=== PATIENT | female | born 1950 | race Caucasian/White ===

== ENCOUNTER 2018-05-13 00:58 | Emergency (ER) | payer MEDICARE, OTHER ==
[~2018-05-13] VITALS: Ht 167.6 cm; Wt 57.0 kg
[~2018-05-13 00:58] MED LIST: BREX0.25 PO; CLON-527 PO; DESV100T4 PO; GARL600T2 PO; MUPI1OIN8 BOTHNARES; OREG1500 PO; RES15C PO; SILV50CR31 TP; SULF1TAB48 PO; [UNRECOGNIZED DRUG - OTHER] PO
[2018-05-13 01:02] VITALS: BP 185/91
[2018-05-13] MEDS ORDERED: ondansetron 4mg rapidly disintigrating tab PO ONE (01:40)
[2018-05-13] MEDS ORDERED: acetaminophen 325mg tablet PO ONE (01:40)
[2018-05-13] MEDS ORDERED: morphine 4 MG/ML inj SYRINge IM ONE (01:40)
[2018-05-13] MEDS ORDERED: HYDROcodone/acetaminophen 5mg/325mg tablet PO ONE (01:40)
[2018-05-13] MEDS ORDERED: HYDR-3965 PO (01:43)
[2018-05-13] MEDS ORDERED: ONDA8TAB9 PO (01:43)
== END 2018-05-13 02:19 | disposition home or self-care (01) ==
LOC: ER 00:59
DX: S42.291A Other displaced fracture of upper end of right humerus, initial encounter for closed fracture (principal); J45.909 Unspecified asthma, uncomplicated; Z98.890 Other specified postprocedural states; Z79.899 Other long term (current) drug therapy; W18.39XA Other fall on same level, initial encounter; Y93.89 Activity, other specified; Y92.89 Other specified places as the place of occurrence of the external cause; Y99.8 Other external cause status
CPT/HCPCS: 73030; 96372; 99284; J2270

== ENCOUNTER 2018-05-24 14:08 | Outpatient (CLI) | payer MEDICARE ==
[2018-05-24 14:05] VITALS: BP 148/71
[~2018-05-24 14:08] MED LIST changes: +HYDR-3965 PO; +ONDA8TAB9 PO
== END 2018-05-24 15:01 | disposition home or self-care (01) ==
LOC: ORTHO 14:08
PROVIDERS: ATTEND Nurse Practitioner Family
DX: S42.291A Other displaced fracture of upper end of right humerus, initial encounter for closed fracture (principal); I10 Essential (primary) hypertension; F17.210 Nicotine dependence, cigarettes, uncomplicated; E03.9 Hypothyroidism, unspecified; J45.909 Unspecified asthma, uncomplicated; F32.9 Major depressive disorder, single episode, unspecified; X58.XXXA Exposure to other specified factors, initial encounter; Y93.89 Activity, other specified; Y92.89 Other specified places as the place of occurrence of the external cause; Y99.8 Other external cause status
CPT/HCPCS: 73030; 99215

== ENCOUNTER 2018-06-15 14:21 | Outpatient (CLI) | payer MEDICARE ==
[2018-06-15 14:16] VITALS: BP 151/87
[~2018-06-15 14:21] MED LIST changes: -HYDR-3965 PO
== END 2018-06-15 15:01 | disposition home or self-care (01) ==
LOC: ORTHO 14:21
PROVIDERS: ATTEND Nurse Practitioner Family
DX: S42.251D Displaced fracture of greater tuberosity of right humerus, subsequent encounter for fracture with routine healing (principal); I10 Essential (primary) hypertension; J45.909 Unspecified asthma, uncomplicated; F41.8 Other specified anxiety disorders; F17.210 Nicotine dependence, cigarettes, uncomplicated; Z79.899 Other long term (current) drug therapy; W22.8XXD Striking against or struck by other objects, subsequent encounter
CPT/HCPCS: 73030; 99213

== ENCOUNTER 2018-06-19 11:46 | Emergency (ER) | payer MEDICARE ==
[~2018-06-19] VITALS: Ht 168.9 cm; Wt 72.0 kg
[2018-06-19] MEDS ORDERED: ondansetron/PF 4mg/2ml inj IV ONE (12:05)
[2018-06-19] MEDS ORDERED: morphine 4 MG/ML inj SYRINge IV ONE (12:05)
[2018-06-19 12:53] LABS: BASOPHILS % (AUTO) 0.4 % (0-1); EOSINOPHILS % (AUTO) 0.1 % (0-6); HEMATOCRIT 39.8 % (35.0-45.0); HEMOGLOBIN 13.2 g/dl (12.0-16.0); LYMPHOCYTES # (AUTO) 0.9 X10'3 (1.1-4.8); LYMPHOCYTES % (AUTO) 8.9 % (21-51); MEAN CORPUSCULAR HEMOGLOBIN 31.6 PG (27.0-31.0); MEAN CORPUSCULAR HGB CONC 33.1 % (33.0-36.5); MEAN CORPUSCULAR VOLUME 95.5 FL (78-98); MEAN PLATELET VOLUME 6.6 FL (7.4-10.4); MONOCYTES # (AUTO) 1.2 X10'3 (0-0.9); MONOCYTES % (AUTO) 11.6 % (2-12); NEUTROPHILS # (AUTO) 8.3 X10'3 (1.8-7.7); PLATELET COUNT 409 X10'3 (140-440); RED BLOOD COUNT 4.16 X10'6 (4.20-5.60); RED CELL DISTRIBUTION WIDTH 12.8 % (11.5-14.5); WHITE BLOOD COUNT 10.4 X10'3 (4.5-11.0)
[2018-06-19 13:06] LABS: ALANINE AMINOTRANSFERASE 39 U/L (12-78); ALBUMIN 3.9 G/DL (3.4-5.0); ALBUMIN/GLOBULIN RATIO 1.1 (1.1-1.5); ALKALINE PHOSPHATASE 104 IU/L (46-116); ANION GAP 14 (8-16); ASPARTATE AMINO TRANSFERASE 27 U/L (10-37); BILIRUBIN,TOTAL 0.2 MG/DL (0.1-1.0); BLOOD UREA NITROGEN 20 MG/DL (7-18); BUN/CREATININE RATIO 9.9 (6.6-38.0); CALCIUM 8.8 MG/DL (8.5-10.1); CHLORIDE 104 MMOL/L (99-107); CREATININE 2.02 MG/DL (0.40-0.90); GLUCOSE 123 MG/DL (70-104); LIPASE 152 U/L (73-393); POTASSIUM 4.1 MMOL/L (3.5-5.1); SODIUM 145 MMOL/L (135-145); TOTAL CARBON DIOXIDE 27.5 MMOL/L (24-32); TOTAL PROTEIN 7.3 G/DL (6.4-8.2); eGFR 25 ML/MIN
[2018-06-19] MEDS ORDERED: normal saline 1000ML IV soln IVB ONE (13:30)
[2018-06-19 14:32] LABS: MAGNESIUM 2.4 MG/DL (1.5-2.4)
[2018-06-19 14:48] LABS: CLARITY,URINE SLIGHTLY CLOUDY (Clear); COLOR,URINE YELLOW (Yellow); GLUCOSE, URINE NEGATIVE (Neg); KETONES,URINE NEGATIVE (Neg); LEUKOCYTE ESTERASE ,URINE NEGATIVE (Neg); NITRITES, URINE NEGATIVE (Neg); OCCULT BLOOD,URINE MODERATE (Neg); PH,URINE 5.5 (4.8-8.0); PROTEIN,URINE 30 mg/dl (Neg); UROBILINOGEN,URINE 0.2 E.U/dL (0.2-1.0)
[2018-06-19 14:53] LABS: UA COLLECTION TYPE CLN CATCH MIDSTREAM
[2018-06-19 14:54] LABS: BACTERIA,URINE 1+ /HPF (Neg); RBC,URINE 0-2 /HPF (0-2); WBC,URINE 0-4 /HPF (0-4)
[2018-06-19 14:55] LABS: CAL OXALATE CRYSTALS FEW /HPF (NEGATIVE); MUCUS STRANDS MODERATE /LPF (Neg); SQUAMOUS EPITHELIAL CELL,UR MANY /LPF (FEW); YEAST FEW /HPF (NEGATIVE)
[2018-06-19 15:01] LABS: URINE AMPHETAMINE SCREEN POSITIVE (Neg); URINE BARBITUATE SCREEN NEGATIVE (Neg); URINE BENZODIAZEPINES SCREEN NEGATIVE (Neg); URINE CANNABINOID SCREEN NEGATIVE (Neg); URINE COCAINE SCREEN NEGATIVE (Neg); URINE METHADONE SCREEN NEGATIVE (Neg); URINE OPIATE SCREEN POSITIVE (Neg); URINE PHENCYCLIDINE SCREEN NEGATIVE (Neg)
[2018-06-19 15:05] LABS: ALBUMIN 4.1 G/DL (3.4-5.0); ANION GAP 12 (8-16); BLOOD UREA NITROGEN 20 MG/DL (7-18); BUN/CREATININE RATIO 11.6 (6.6-38.0); CALCIUM 9.2 MG/DL (8.5-10.1); CHLORIDE 104 MMOL/L (99-107); CREATININE 1.72 MG/DL (0.40-0.90); GLUCOSE 114 MG/DL (70-104); POTASSIUM 4.3 MMOL/L (3.5-5.1); SODIUM 143 MMOL/L (135-145); TOTAL CARBON DIOXIDE 27.2 MMOL/L (24-32); eGFR 30 ML/MIN
[2018-06-19 16:26] VITALS: BP 156/89
== END 2018-06-19 16:31 | disposition home or self-care (01) ==
LOC: ER 11:47
DX: N17.9 Acute kidney failure, unspecified (principal); E86.1 Hypovolemia; R11.10 Vomiting, unspecified; F15.10 Other stimulant abuse, uncomplicated; I10 Essential (primary) hypertension; E03.9 Hypothyroidism, unspecified; Z98.890 Other specified postprocedural states; Z86.718 Personal history of other venous thrombosis and embolism; Z79.899 Other long term (current) drug therapy
CPT/HCPCS: 36415; 76775; 80048; 80053; 80305; 81001; 83605; 83690; 83735; 84145; 85025; 87040; 87077; 87186; 96361; 96374; 96375; 99284; J2270; J2405; J7030

== ENCOUNTER 2018-07-12 14:47 | Outpatient (CLI) | payer MEDICARE ==
[2018-07-12 14:47] VITALS: BP 150/79
== END 2018-07-12 15:12 | disposition home or self-care (01) ==
LOC: ORTHO 14:47
PROVIDERS: ATTEND Nurse Practitioner Family
DX: S42.211D Unspecified displaced fracture of surgical neck of right humerus, subsequent encounter for fracture with routine healing (principal); J45.909 Unspecified asthma, uncomplicated; F32.9 Major depressive disorder, single episode, unspecified; F17.200 Nicotine dependence, unspecified, uncomplicated; X58.XXXD Exposure to other specified factors, subsequent encounter
CPT/HCPCS: 73030; 99213

== ENCOUNTER 2018-09-14 01:24 | Emergency (ER) | payer MEDICARE ==
[~2018-09-14] VITALS: Ht 167.6 cm; Wt 74.0 kg
[2018-09-14 02:46] LABS: BASOPHILS # (AUTO) 0.1 X10'3 (0-0.2); BASOPHILS % (AUTO) 0.9 % (0-1); EOSINOPHILS % (AUTO) 0.4 % (0-6); HEMATOCRIT 42.5 % (35.0-45.0); HEMOGLOBIN 14.2 g/dl (12.0-16.0); LYMPHOCYTES # (AUTO) 1.3 X10'3 (1.1-4.8); MEAN CORPUSCULAR HGB CONC 33.4 g/dL (33.0-36.5); MEAN CORPUSCULAR VOLUME 92.9 FL (78-98); MEAN PLATELET VOLUME 7.1 FL (7.4-10.4); MONOCYTES # (AUTO) 0.8 X10'3 (0-0.9); MONOCYTES % (AUTO) 9.2 % (2-12); NEUTROPHILS # (AUTO) 6.1 X10'3 (1.8-7.7); NEUTROPHILS % (AUTO) 73.5 % (42-75); PLATELET COUNT 385 X10'3 (140-440); RED BLOOD COUNT 4.58 X10'6 (4.20-5.60); RED CELL DISTRIBUTION WIDTH 12.9 % (11.5-14.5); WHITE BLOOD COUNT 8.3 X10'3 (4.5-11.0)
[2018-09-14 02:52] LABS: ALANINE AMINOTRANSFERASE 59 U/L (12-78); ALBUMIN 3.8 G/DL (3.4-5.0); ALBUMIN/GLOBULIN RATIO 1.1 (1.1-1.5); ALKALINE PHOSPHATASE 100 IU/L (46-116); ANION GAP 9 (8-16); ASPARTATE AMINO TRANSFERASE 50 U/L (10-37); BILIRUBIN,TOTAL 0.1 MG/DL (0.1-1.0); BLOOD UREA NITROGEN 19 MG/DL (7-18); BUN/CREATININE RATIO 15.6 (6.6-38.0); CALCIUM 9.3 MG/DL (8.5-10.1); CHLORIDE 102 MMOL/L (99-107); CREATININE 1.22 MG/DL (0.40-0.90); GLUCOSE 112 MG/DL (70-104); POTASSIUM 4.1 MMOL/L (3.5-5.1); SODIUM 139 MMOL/L (135-145); TOTAL CARBON DIOXIDE 27.6 MMOL/L (24-32); TOTAL PROTEIN 7.4 G/DL (6.4-8.2); eGFR 44 ML/MIN
[2018-09-14 02:56] LABS: MAGNESIUM 2.1 MG/DL (1.5-2.4)
[2018-09-14] MEDS ORDERED: ondansetron/PF 4mg/2ml inj IV ONE (03:10)
[2018-09-14 06:16] VITALS: BP 109/57
== END 2018-09-14 06:45 | disposition home or self-care (01) ==
LOC: ER 01:25
DX: T42.4X1A Poisoning by benzodiazepines, accidental (unintentional), initial encounter (principal); T39.1X1A Poisoning by 4-Aminophenol derivatives, accidental (unintentional), initial encounter; R55 Syncope and collapse; I10 Essential (primary) hypertension; E03.9 Hypothyroidism, unspecified; Z86.718 Personal history of other venous thrombosis and embolism; Y92.89 Other specified places as the place of occurrence of the external cause
CPT/HCPCS: 36415; 70450; 71045; 80053; 83735; 84484; 85025; 93005; 96374; 99284; J2405

== ENCOUNTER 2019-02-05 20:53 | Emergency (ER) | payer MEDICARE ==
[~2019-02-05] VITALS: Ht 165.1 cm; Wt 67.3 kg
[2019-02-05 21:08] VITALS: BP 145/100
[2019-02-05] MEDS ORDERED: PERM60CR19 TP (21:30)
== END 2019-02-05 21:42 | disposition home or self-care (01) ==
LOC: ER 20:53
DX: S40.862A Insect bite (nonvenomous) of left upper arm, initial encounter (principal); S40.861A Insect bite (nonvenomous) of right upper arm, initial encounter; I10 Essential (primary) hypertension; F32.9 Major depressive disorder, single episode, unspecified; E03.9 Hypothyroidism, unspecified; Z79.899 Other long term (current) drug therapy; Z86.718 Personal history of other venous thrombosis and embolism; Z86.14 Personal history of Methicillin resistant Staphylococcus aureus infection; Z98.890 Other specified postprocedural states; W57.XXXA Bitten or stung by nonvenomous insect and other nonvenomous arthropods, initial encounter; Y93.89 Activity, other specified; Y92.89 Other specified places as the place of occurrence of the external cause; Y99.8 Other external cause status
CPT/HCPCS: 99282

== ENCOUNTER 2021-02-25 06:59 | Emergency (ER) | payer MEDICARE ==
[~2021-02-25] VITALS: Ht 165.1 cm; Wt 65.9 kg
[~2021-02-25 06:59] MED LIST changes: +HYDR28CR14 TOP
--- NOTE | 2021-02-25 11:12 | NUR ---
attempt ekg, patient wanted me to come back at later time per "being cold". MD mike made aware.
[2021-02-25 11:56] LABS: BASOPHILS # (AUTO) 0.1 X10'3 (0-0.2); BASOPHILS % (AUTO) 1.1 % (0-1); EOSINOPHILS # (AUTO) 0.1 X10'3 (0-0.9); EOSINOPHILS % (AUTO) 1.7 % (0-6); HEMATOCRIT 38.3 % (35.0-45.0); HEMOGLOBIN 13.4 g/dl (12.0-16.0); LYMPHOCYTES # (AUTO) 1.4 X10'3 (1.1-4.8); LYMPHOCYTES % (AUTO) 26.2 % (21-51); MEAN CORPUSCULAR HEMOGLOBIN 32.9 PG (27.0-31.0); MEAN PLATELET VOLUME 7.4 FL (7.4-10.4); MONOCYTES # (AUTO) 0.7 X10'3 (0-0.9); NEUTROPHILS # (AUTO) 3.1 X10'3 (1.8-7.7); PLATELET COUNT 354 X10'3 (140-440); RED BLOOD COUNT 4.08 X10'6 (4.20-5.60); RED CELL DISTRIBUTION WIDTH 12.7 % (11.5-14.5); WHITE BLOOD COUNT 5.4 X10'3 (4.5-11.0)
[2021-02-25 12:01] LABS: ALANINE AMINOTRANSFERASE 35 U/L (12-78); ALBUMIN 3.7 G/DL (3.4-5.0); ALKALINE PHOSPHATASE 85 IU/L (46-116); ANION GAP 9 (8-16); ASPARTATE AMINO TRANSFERASE 26 U/L (10-37); BILIRUBIN,TOTAL 0.2 MG/DL (0.1-1.0); BLOOD UREA NITROGEN 18 MG/DL (7-18); BUN/CREATININE RATIO 17.8 (6.6-38.0); CALCIUM 10.3 MG/DL (8.5-10.1); CHLORIDE 107 MMOL/L (99-107); CREATININE 1.01 MG/DL (0.40-0.90); GLUCOSE 95 MG/DL (70-104); POTASSIUM 3.8 MMOL/L (3.5-5.1); SODIUM 145 MMOL/L (135-145); TOTAL CARBON DIOXIDE 28.8 MMOL/L (24-32); TOTAL PROTEIN 7.4 G/DL (6.4-8.2); eGFR 54 ML/MIN
[2021-02-25 12:08] LABS: ETHANOL < 0.010 GM/DL (0.0-0.010); MAGNESIUM 2.3 MG/DL (1.5-2.4); TROPONIN I < 0.04 NG/ML (0.0-0.05)
[2021-02-25] MEDS ORDERED: FURO-150 PO (12:44)
--- NOTE | 2021-02-25 12:51 | NUR ---
Pt given and understands d/c instructions. Ambulatory with a slow steady gait. C/O leg pain when walking or when legs are touched.
[2021-02-25 12:52] VITALS: BP 162/87
== END 2021-02-25 12:54 | disposition home or self-care (01) ==
LOC: ER 06:59
DX: R60.0 Localized edema (principal); I10 Essential (primary) hypertension; E06.9 Thyroiditis, unspecified; F32.9 Major depressive disorder, single episode, unspecified; F15.10 Other stimulant abuse, uncomplicated
CPT/HCPCS: 36415; 71045; 80053; 80320; 83735; 83880; 84484; 85025; 93005; 99285

== ENCOUNTER 2021-02-27 10:27 | Emergency (ER) | payer MEDICARE ==
[~2021-02-27] VITALS: Ht 165.1 cm; Wt 65.9 kg
[~2021-02-27 10:27] MED LIST changes: +FURO-150 PO
[2021-02-27 16:27] VITALS: BP 150/67
== END 2021-02-27 16:54 | disposition home or self-care (01) ==
LOC: ER 10:29
DX: F22 Delusional disorders (principal); F43.10 Post-traumatic stress disorder, unspecified; I10 Essential (primary) hypertension; E03.9 Hypothyroidism, unspecified; Z86.14 Personal history of Methicillin resistant Staphylococcus aureus infection; F15.90 Other stimulant use, unspecified, uncomplicated; Z98.891 History of uterine scar from previous surgery; Z98.890 Other specified postprocedural states; Z87.81 Personal history of (healed) traumatic fracture; Z79.899 Other long term (current) drug therapy; R60.9 Edema, unspecified
CPT/HCPCS: 99281

== ENCOUNTER 2021-03-10 08:38 | Emergency (ER) | payer MEDICARE ==
[~2021-03-10] VITALS: Ht 167.6 cm; Wt 63.6 kg
[2021-03-10 08:52] VITALS: BP 153/89
[2021-03-10] MEDS ORDERED: LORazepam 1 MG tablet PO ONE (09:30)
[2021-03-10] MEDS ORDERED: DESV100T16 PO (09:53)
[2021-03-10] MEDS ORDERED: ZIPR40CA14 (09:53)
[2021-03-10] MEDS ORDERED: CLON-568 PO (09:53)
[2021-03-10] MEDS ORDERED: FURO20TA4 PO (09:54)
[2021-03-10 10:08] LABS: BASOPHILS # (AUTO) 0.1 X10'3 (0-0.2); BASOPHILS % (AUTO) 1.2 % (0-1); EOSINOPHILS # (AUTO) 0.1 X10'3 (0-0.9); EOSINOPHILS % (AUTO) 0.6 % (0-6); HEMATOCRIT 40.8 % (35.0-45.0); HEMOGLOBIN 14.2 g/dl (12.0-16.0); LYMPHOCYTES # (AUTO) 2.1 X10'3 (1.1-4.8); LYMPHOCYTES % (AUTO) 22.3 % (21-51); MEAN CORPUSCULAR HEMOGLOBIN 32.3 PG (27.0-31.0); MEAN CORPUSCULAR HGB CONC 34.7 g/dL (33.0-36.5); MEAN CORPUSCULAR VOLUME 93.1 FL (78-98); MEAN PLATELET VOLUME 7.5 FL (7.4-10.4); MONOCYTES # (AUTO) 1.1 X10'3 (0-0.9); MONOCYTES % (AUTO) 11.2 % (2-12); NEUTROPHILS # (AUTO) 6.2 X10'3 (1.8-7.7); NEUTROPHILS % (AUTO) 64.7 % (42-75); PLATELET COUNT 389 X10'3 (140-440); RED BLOOD COUNT 4.39 X10'6 (4.20-5.60); RED CELL DISTRIBUTION WIDTH 12.6 % (11.5-14.5); WHITE BLOOD COUNT 9.6 X10'3 (4.5-11.0)
[2021-03-10 10:21] LABS: ALANINE AMINOTRANSFERASE 33 U/L (12-78); ALBUMIN 4.1 G/DL (3.4-5.0); ALBUMIN/GLOBULIN RATIO 1.1 (1.1-1.5); ALKALINE PHOSPHATASE 97 IU/L (46-116); ANION GAP 14 (8-16); ASPARTATE AMINO TRANSFERASE 30 U/L (10-37); BILIRUBIN,TOTAL 0.4 MG/DL (0.1-1.0); BLOOD UREA NITROGEN 26 MG/DL (7-18); BUN/CREATININE RATIO 19.7 (6.6-38.0); CALCIUM 9.2 MG/DL (8.5-10.1); CHLORIDE 100 MMOL/L (99-107); CREATININE 1.32 MG/DL (0.40-0.90); GLUCOSE 102 MG/DL (70-104); SODIUM 138 MMOL/L (135-145); TOTAL CARBON DIOXIDE 24.3 MMOL/L (24-32); eGFR 40 ML/MIN
[2021-03-10 10:31] LABS: ETHANOL < 0.010 GM/DL (0.0-0.010)
[2021-03-10 10:59] LABS: CLARITY,URINE TURBID (Clear); COLOR,URINE YELLOW (Yellow); UA COLLECTION TYPE VOIDED
[2021-03-10 11:00] LABS: GLUCOSE, URINE NEGATIVE (Neg); KETONES,URINE TRACE mg/dl (Neg); PH,URINE 6.5 (4.8-8.0); PROTEIN,URINE TRACE mg/dl (Neg); URINE AMPHETAMINE SCREEN POSITIVE (Neg); URINE BARBITUATE SCREEN NEGATIVE (Neg); URINE BENZODIAZEPINES SCREEN POSITIVE (Neg); URINE CANNABINOID SCREEN NEGATIVE (Neg); URINE COCAINE SCREEN NEGATIVE (Neg); URINE METHADONE SCREEN NEGATIVE (Neg); URINE OPIATE SCREEN NEGATIVE (Neg); URINE PHENCYCLIDINE SCREEN NEGATIVE (Neg)
[2021-03-10 11:01] LABS: LEUKOCYTE ESTERASE ,URINE SMALL (Neg); NITRITES, URINE POSITIVE (Neg); OCCULT BLOOD,URINE TRACE-INTACT (Neg); UROBILINOGEN,URINE 0.2 E.U/dL (0.2-1.0)
[2021-03-10 11:05] LABS: MUCUS STRANDS MODERATE /LPF (Neg); SQUAMOUS EPITHELIAL CELL,UR MANY /LPF (FEW)
[2021-03-10 11:06] LABS: BACTERIA,URINE 4+ /HPF (Neg); TRANSITIONAL EPI CELLS,URINE FEW /HPF; WBC,URINE 50-100 /HPF (0-4)
[2021-03-10 11:07] LABS: RBC,URINE 0-2 /HPF (0-2)
--- NOTE | 2021-03-10 11:14 | NUR ---
PACKET FAXED TO [facility]
--- NOTE | 2021-03-10 13:30 | NUR ---
Pt brought over from ED bed 15 and placed in overflow bed 22. Pt orientated to environment.
--- NOTE | 2021-03-10 13:54 | NUR ---
Pt with director [facility] [employer] therapy [employer] from [facility] talking with pt at bedside.
[2021-03-10] MEDS ORDERED: CEPH250T PO (14:37)
--- NOTE | 2021-03-10 14:54 | NUR ---
Pt to be discharged with fiance per [facility]. Pts fiance to set up ride here and drive pt home in pts car that is here.
[2021-03-10] MEDS ORDERED: cephalexin 500mg capsule PO ONE (20:00)
== END 2021-03-10 19:53 | disposition home or self-care (01) ==
LOC: ER 08:39
DX: F22 Delusional disorders (principal); Z20.822 Contact with and (suspected) exposure to COVID-19; F23 Brief psychotic disorder; N39.0 Urinary tract infection, site not specified; R42 Dizziness and giddiness; R11.0 Nausea; R51.9 Headache, unspecified; I10 Essential (primary) hypertension; E03.9 Hypothyroidism, unspecified; F32.9 Major depressive disorder, single episode, unspecified; F15.90 Other stimulant use, unspecified, uncomplicated; Z86.718 Personal history of other venous thrombosis and embolism; Z86.14 Personal history of Methicillin resistant Staphylococcus aureus infection; Z98.890 Other specified postprocedural states; Z79.2 Long term (current) use of antibiotics; Z79.899 Other long term (current) drug therapy
CPT/HCPCS: 36415; 80053; 80305; 80320; 81001; 84443; 85025; 87635; 99284; C9803

== ENCOUNTER 2021-04-09 09:03 | Emergency (ER) | payer MEDICARE ==
[~2021-04-09] VITALS: Ht 167.6 cm; Wt 63.6 kg
[~2021-04-09 09:03] MED LIST changes: -BREX0.25 PO; +CEPH250T PO; -CLON-527 PO; +CLON-568 PO; +DESV100T16 PO; -DESV100T4 PO; -FURO-150 PO; +FURO20TA4 PO; -GARL600T2 PO; -HYDR28CR14 TOP; -MUPI1OIN8 BOTHNARES; -ONDA8TAB9 PO; -OREG1500 PO; -RES15C PO; -SILV50CR31 TP; -SULF1TAB48 PO; +ZIPR40CA14; -[UNRECOGNIZED DRUG - OTHER] PO
[2021-04-09 10:13] VITALS: BP 132/68
[2021-04-09] MEDS ORDERED: PRED20TA PO (11:54)
[2021-04-09] MEDS ORDERED: ALBU6.7H9 INH (11:54)
[2021-04-09] MEDS ORDERED: AZIT500T PO (11:54)
[2021-04-09] MEDS ORDERED: CASIRIVIMAB/IMDEVIMAB inject. 10 ML in normal saline 100ml IV soln 100 ML IV ONE (11:55)
[2021-04-09] MEDS ORDERED: BAMLANIVIMAB 700MG, ETESEVIMAB 1,400MG in NS 100mL (Total vol 160ml) IV ONE (12:00)
--- NOTE | 2021-04-09 12:11 | NUR ---
PT WAS DC HOME PRIOR TO RECEVING HER INFUSION OF [place] FOR BEING COVID POSITIVE. PROVIDER MARGA LEGGETT DISCUSSED INFUSION WITH PT AND PER PROVIDER PT WAS AGREEABLE TO THE TREATMENT. ATTEMPTED TO CALL PT TO HAVE HER RETURN, UNABLE TO LEAVE A MESSAGE DUE TO HER VOICE MAIL BOX WAS FULL.
== END 2021-04-09 12:10 | disposition home or self-care (01) ==
LOC: ER 09:05
DX: U07.1 COVID-19 (principal); R53.83 Other fatigue; R05.9 Cough, unspecified; R06.02 Shortness of breath; R07.89 Other chest pain; I10 Essential (primary) hypertension; E03.9 Hypothyroidism, unspecified; F32.9 Major depressive disorder, single episode, unspecified; F17.200 Nicotine dependence, unspecified, uncomplicated; F15.90 Other stimulant use, unspecified, uncomplicated; Z86.718 Personal history of other venous thrombosis and embolism; Z86.14 Personal history of Methicillin resistant Staphylococcus aureus infection; Z98.890 Other specified postprocedural states; Z79.2 Long term (current) use of antibiotics; Z79.899 Other long term (current) drug therapy
CPT/HCPCS: 71045; 87635; 99291; C9803

== ENCOUNTER 2021-09-13 03:46 | Emergency (ER) | payer BC, MEDICARE ==
[~2021-09-13] VITALS: Ht 167.6 cm; Wt 90.2 kg
[~2021-09-13 03:46] MED LIST changes: +ALBU6.7H9 INH
[2021-09-13] MEDS ORDERED: HYDROcodone/acetaminophen 10/325mg tab PO STA (03:59)
--- NOTE | 2021-09-13 05:08 | NUR ---
Patient seen and treated by . Cuero 10 was given for pain with good relief. Splint placed by Nora. Patient and boyfriend exhibited understanding of discharge instructions. Patient will follow up with ortho MD on Wednesday. Disch to home. Nora took patient to automobile by wheelchair.
[2021-09-13 05:11] VITALS: BP 143/87
== END 2021-09-13 05:14 | disposition home or self-care (01) ==
LOC: ER 03:46
DX: S52.502A Unspecified fracture of the lower end of left radius, initial encounter for closed fracture (principal); I10 Essential (primary) hypertension; E03.9 Hypothyroidism, unspecified; F15.90 Other stimulant use, unspecified, uncomplicated; Z87.81 Personal history of (healed) traumatic fracture; Z86.79 Personal history of other diseases of the circulatory system; Z98.891 History of uterine scar from previous surgery; Z79.899 Other long term (current) drug therapy; Z79.2 Long term (current) use of antibiotics; W18.2XXA Fall in (into) shower or empty bathtub, initial encounter; Y93.89 Activity, other specified; Y92.89 Other specified places as the place of occurrence of the external cause; Y99.8 Other external cause status
CPT/HCPCS: 29125; 73130; 99283